=== PATIENT | female | born 1940 | race Caucasian/White ===

== ENCOUNTER → 2017-08-14 | Outpatient (CLI) | payer BC ==
[2017-08-14 17:51] LABS: CALCIUM 8.4 mg/dl (8.5-10.1)
[2017-08-14 18:05] LABS: THYROID STIMULATING HORMONE 2.15 uIu/ml (0.300-4.500)
== END | disposition home or self-care (01) ==
LOC: C.LABMFLN 14:25
PROVIDERS: ATTEND Internal Medicine Endocrinology, Diabetes & Metabolism
DX: Z00.00 Encounter for general adult medical examination without abnormal findings (principal); E03.9 Hypothyroidism, unspecified; E83.52 Hypercalcemia; E21.3 Hyperparathyroidism, unspecified

== ENCOUNTER → 2017-08-21 | Outpatient (CLI) | payer BC | END | disposition home or self-care (01) | LOC: C.LABMFLN 11:23 | PROVIDERS: ATTEND Internal Medicine Endocrinology, Diabetes & Metabolism | DX: Z00.00 Encounter for general adult medical examination without abnormal findings (principal); E83.52 Hypercalcemia; E21.3 Hyperparathyroidism, unspecified ==

== ENCOUNTER → 2017-09-04 | Outpatient (CLI) | payer BC | END | disposition home or self-care (01) | LOC: C.LABMFLN 15:41 | PROVIDERS: ATTEND Internal Medicine Endocrinology, Diabetes & Metabolism | DX: Z00.00 Encounter for general adult medical examination without abnormal findings (principal); E83.52 Hypercalcemia; E21.3 Hyperparathyroidism, unspecified ==

== ENCOUNTER → 2017-10-05 | Outpatient (CLI) | payer BC ==
[2017-10-05 18:12] LABS: CALCIUM URINE 7.1 mg/dl
[2017-10-05 18:20] LABS: CALCIUM 9.3 mg/dl (8.5-10.1); CREATININE 1.46 mg/dl (0.60-1.20)
== END | disposition home or self-care (01) ==
LOC: C.LABMFLN 14:19
PROVIDERS: ATTEND Internal Medicine Endocrinology, Diabetes & Metabolism
DX: E83.52 Hypercalcemia (principal)

== ENCOUNTER → 2017-12-24 | Outpatient (CLI) | payer BC ==
[2017-12-24 17:48] LABS: BASO % 0.2 %; BASO ABS # 0.01 K/uL (0-0.2); EOS % 0.9 %; EOS ABS # 0.05 K/uL (0-0.5); HEMATOCRIT 46.4 % (37-47); HEMOGLOBIN 15.1 g/dL (12.0-16.0); IG# 0.01 K/uL (0.00-0.02); LYMPH % 29.4 %; LYMPH ABS # 1.69 K/uL (1.2-3.4); MEAN CELL VOLUME 97.9 fL (80-100); MEAN CORPUSCULAR HEMOGLOBIN 31.9 pg (25-34); MEAN CORPUSCULAR HGB CONC 32.5 g/dl (32-36); MEAN PLATELET VOLUME 11.2 fL (7.4-10.4); MONO % 7.1 %; MONO ABS # 0.41 K/uL (0.11-0.59); NEUT % 62.2 %; NEUT ABS # 3.57 K/uL (1.4-6.5); PLATELET COUNT 160 K/uL (130-400); RED CELL DISTRIBUTION WIDTH CV 13.4 % (11.5-14.5); RED CELL DISTRIBUTION WIDTH SD 47.8 fL (36.4-46.3); WHITE BLOOD COUNT 5.74 K/uL (4.8-10.8)
[2017-12-24 18:24] LABS: ALBUMIN 3.5 gm/dl (3.4-5.0)
== END | disposition home or self-care (01) ==
LOC: C.LABMFLN 15:26
PROVIDERS: ATTEND Family Medicine
DX: E83.52 Hypercalcemia (principal); J44.9 Chronic obstructive pulmonary disease, unspecified; N18.3 Chronic kidney disease, stage 3 (moderate); E55.9 Vitamin D deficiency, unspecified; R91.8 Other nonspecific abnormal finding of lung field; F32.9 Major depressive disorder, single episode, unspecified